=== PATIENT | male | born 1990 | race Caucasian/White ===

== ENCOUNTER 2019-03-25 18:44 | Emergency (ER) | payer OTHER ==
[2019-03-25] MEDS ORDERED: ACETAMINOPHEN 1000 MG/100 ML VIAL (NON FORMULARY) IVPB ONE (18:52)
[2019-03-25] MEDS ORDERED: METOCLOPRAMIDE HCL INJECTION 10 MG/2 ML VIAL IVPB ONE (18:52)
[2019-03-25] MEDS ORDERED: SODIUM CHLORIDE 1,000 ML IV STA (18:52)
[2019-03-25 18:53] VITALS: TEMP 98.2; BMI 29.8
--- NOTE | 2019-03-25 18:53 | PDOC ---
Rapid Medical Evaluation Time Seen by Provider: 03/25/19 18:48 Medical Evaluation: 03/25/19 18:48 Pt presents to the ER for evaluation of headache. He was seen at [facility] and diagnosed with a sinus infection. He was placed on Amoxicillin and given nasal decongestant. He states he still has a headache. Exam: No gross neuro deficits. Orders: labs, CT, IV meds Pt to proceed to the ER for evaluation Discharge Disposition - Diagnosis Headache Qualifiers: Headache type: unspecified Headache chronicity pattern: acute headache Intractability: not intractable Qualified Code(s): R51 - Headache - Referrals - Patient Instructions - Post Discharge Activity
[2019-03-25] MEDS ORDERED: ACETAMINOPHEN INJECTION 100 ML IVPB ONE (20:56)
[2019-03-25] MEDS ORDERED: METOCLOPRAMIDE HCL INJECTION 10 MG/2 ML VIAL ONE (20:56)
--- NOTE | 2019-03-25 21:07 | PDOC ---
History of Present Illness - General Chief Complaint: Headache Stated Complaint: HEADACHE Time Seen by Provider: 03/25/19 18:48 History Source: Patient Exam Limitations: No Limitations - History of Present Illness Initial Comments: 03/25/19 20:56 Ray Hamilton is an otherwise healthy 28M recently seen at [facility] and diagnosed with sinusitis presenting with SOSA. Patient reports that he has had a R-sided SOSA for the last 2 weeks, described as constant stabbing 8-9/10 pain that is only relieved by 600mg ibuprofen but returns after 1 hour. Has episodes of blurry vision when the pain is too strong. Also complaining of right facial pain from forehead to jaw. Denies photophobia, nausea, vomiting, dizziness, weakness. No prior history of migraines or SOSA prior to 2 weeks ago, denies trauma to the head. Tolerating PO well. Denies fever/chills, chest pain, SOB. Diagnosed with sinusitis at [facility] pt on daily amoxicillin without improvement, denies any allergies, congestion, URI sx. NKDA No other PMH Works in construction Past History - Past Medical History Allergies/Adverse Reactions: Allergies Allergy/AdvReac Type Severity Reaction Status Date / Time No Known Allergies Allergy Verified 03/25/19 18:53 Home Medications: Ambulatory Orders NK [No Known Home Medication] 03/25/19 COPD: No GI Disorders: No Hypercholesterolemia: No - Surgical History Cholecystectomy: No - Immunization History Immunization Up to Date: No - Psycho Social/Smoking Cessation Hx Smoking History: Current every day smoker Have you smoked in the past 12 months: Yes Number of Cigarettes Smoked Daily: 2 Information on smoking cessation initiated: No Hx Alcohol Use: No Drug/Substance Use Hx: No Review of Systems - Review of Systems Able to Perform ROS?: Yes Constitutional: No: Chills, Fever HEENTM: Yes: Blurred Vision. No: Ear Pain, Hearing Loss, Throat Pain, Dental Problems Respiratory: No: Cough, Shortness of Breath, Productive cough Cardiac (ROS): No: Chest Pain, Lightheadedness, Palpitations, Syncope ABD/GI: No: Constipated, Diarrhea, Nausea, Vomiting : No: Symptoms Reported Musculoskeletal: No: Neck Pain Integumentary: No: Symptoms Reported Neurological: Yes: Headache. No: Numbness, Paresthesia, Weakness, Unsteady Gait Endocrine: No: Symptoms Reported Hematologic/Lymphatic: No: Symptoms Reported *Physical Exam - Vital Signs Last Vital Signs Temp Pulse Resp BP Pulse Ox 98.2 F 70 18 115/81 97 03/25/19 18:50 03/25/19 18:50 03/25/19 18:50 03/25/19 18:50 03/25/19 18:50 - Physical Exam General Appearance: Yes: Nourished, Appropriately Dressed. No: Apparent Distress HEENT: positive: EOMI, PARTH, Normal Voice, Symmetrical, Pharynx Normal, Hearing Grossly Normal, TM Erythema (R side), Other (R mastoid tenderness). negative: Scleral Icterus (R), Scleral Icterus (L), Pharyngeal Erythema, Tonsillar Exudate , Tonsillar Erythema Neck: positive: Trachea midline, Normal Thyroid, Supple. negative: Tender, Lymphadenopathy (R), Lymphadenopathy (L) Respiratory/Chest: positive: Normal Breath Sounds. negative: Chest Tender, Respiratory Distress, Accessory Muscle Use, Labored Respiration, Crackles, Rales , Rhonchi, Stridor Cardiovascular: positive: Regular Rhythm, Regular Rate. negative: Murmur Gastrointestinal/Abdominal: positive: Normal Bowel Sounds, Flat, Soft. negative : Tender, Organomegaly, Pulsatile Mass Musculoskeletal: positive: Normal Inspection. negative: CVA Tenderness Extremity: positive: Normal Capillary Refill, Normal Inspection, Normal Range of Motion, Pelvis Stable. negative: Tender Integumentary: positive: Normal Color, Dry, Warm. negative: Diaphoresis Neurologic: positive: product safety tester II-XII NML intact, Fully Oriented, Alert, Normal Mood/ Affect, Normal Response, Motor Strength 5/ ED Treatment Course - LABORATORY CBC & Chemistry Diagram: 03/25/19 21:05 03/25/19 21:05 Medical Decision Making - Medical Decision Making 03/25/19 21:45 Patient is otherwise healthy, presents with R-sided SOSA for 2 weeks. SOSA is consistent with migraine, SAH unlikely given clinical presentation. Also having facial pain with R TM erythema and mastoid tenderness without fever or notable neurological deficits concerning for development of mastoiditis despite amoxicillin use, no sick contacts or URI sx. - CBC/CMP for evaluation of electrolyte vs. infectious causes of SOSA - CT head for characterization of SOSA as well as r/o mastoid infection - IV NS, Reglan, Benadyl for SOSA control 03/25/19 22:36 CBC WNL CMP WNL Pending CT head at this time. If no findings, stable for d/c home with PMD follow-up and Reglan outpatient. Signed out to night team Dr. Tyler. Discharge - Discharge Information Problems reviewed: Yes Clinical Impression/Diagnosis: Headache Qualifiers: Headache type: unspecified Headache chronicity pattern: acute headache Intractability: not intractable Qualified Code(s): R51 - Headache Condition: Worsened - Follow up/Referral Referrals: [facility] [place] [facility] at [place] [Provider Group] - Patient Discharge Instructions Patient Printed Discharge Instructions: DI for Migraine Additional Instructions: Today you were evaluated for headache. Your labs show no infection or abnormalities. Your CT scan shows: Please continue to take your amoxicillin as prescribed. Please follow-up with your primary doctor; if you do not have one, please see our referral. If you experience worsening headache, nausea, vomiting, become unable to walk, or have fever, please return to the emergency room. - Post Discharge Activity
--- NOTE | 2019-03-25 21:21 | PDOC ---
Documentation entered by Perri Cordova SCRIBE, acting as scribe for Priya Thomas DO. Priya Thomas DO: This documentation has been prepared by the Tasha muñoz Nirvannie, SCRIBE, under my direction and personally reviewed by me in its entirety. I confirm that the documentation accurately reflects all work, treatment, procedures, and medical decision making performed by me. Attending Attestation - Resident Resident Name: NoblevargheseLester - ED Attending Attestation I have performed the following: I have examined & evaluated the patient, The case was reviewed & discussed with the resident, I agree w/resident's findings & plan, Exceptions are as noted - HPI HPI: 03/25/19 21:25 The patient is a 28 year old male, with no significant past medical history, who presents to the emergency department with 2 weeks of a constant, right-sided , 8-9/10 headache with associated intermittent blurred vision and right facial pain As per patient,[facility] and was found to have sinusitis. Patient notes taking Amoxicillin and Ibuprofen 600mg, with only minimal relief prompting his arrival to the ED. He denies any changes in strength or sensation. He denies any recent fevers, chills, or dizziness. He denies any recent nausea, vomiting, diarrhea or constipation. He denies any recent chest pain or shortness of breath. He denies any recent dysuria, frequency, urgency or hematuria. Allergies: NKDA - Physicial Exam PE: 03/25/19 21:35 Constitutional: Awake, alert, oriented. No acute distress. Head: +Right mastoid tenderness. +Right maxillary tenderness. Normocephalic. Eyes: PERRL. EOMI. Conjunctivae are not pale. ENT: +Right ear: Erythema without effusion or buldging. Left ear: No buldging or erythema. Mucous membranes are moist and intact. Posterior pharynx without exudates or erythema. Uvula midline. Neck: Supple. Full ROM. No lymphadenopathy. Cardiovascular: Regular rate. Regular rhythm. S1, S2 regular. Distal pulses are 2+ and symmetric. Pulmonary/Chest: No evidence of respiratory distress. Clear to auscultation bilaterally No wheezing, rales or rhonchi. Abdominal: Soft and non-distended. There is no tenderness. No rebound, guarding or rigidity. No organomegaly. No palpable masses. Good bowel sounds. Back: No CVA tenderness. Musculoskeletal: No edema. No cyanosis. No clubbing. Full range of motion in all extremities. No calf tenderness. Radial/pedal pulses are intact and 2+ bilaterally Skin: Skin is warm and dry. No petechiae. No purpura. Neurological: Alert and oriented to person, place, and time. Cranial nerves II -XII are grossly intact. Normal speech. Strength is grossly symmetric. No sensory deficits. Psychiatric: Good eye contact. Normal interaction, affect and behavior. - Medical Decision Making 03/25/19 21:19 a/p: 28yo male with recent dx of sinusitis from [facility] on Amox with persistent R headache, R mastoid ttp, pressure in R maxillary sinus -pt states eating and drinking normally and taking amox -pt denies f/c -no neck pain -no paresthesias -R sided fowler -suspect sinusitis and poss mastoiditis -will send for head ct given pt is on abx with persistent symptoms -will medicate for fowler -will monitor and reassess 03/25/19 21:57 wbc 10 03/25/19 22:03 fowler improving with meds 03/25/19 23:59 fowler resolved pt feeling better head ct neg stable for dc to home
[2019-03-25 21:30] LABS: EOS % 2.4 % (0-4.5); HEMATOCRIT 44.9 % (35.4-49); HEMOGLOBIN 15.1 GM/dL (11.7-16.9); MCH 31.2 pg (25.7-33.7); MCHC 33.6 g/dl (32.0-35.9); MEAN PLT VOLUME 8.3 fl (7.5-11.1); MONO % 6.8 % (3.8-10.2); NEUT % 70.8 % (42.8-82.8); PLATELET COUNT 246 K/MM3 (134-434); RBC 4.83 M/mm3 (4.00-5.60); RDW 13.8 % (11.9-15.9); WHITE BLOOD COUNT 10.7 K/mm3 (4.0-10.0)
[2019-03-25 21:57] LABS: ALBUMIN 4.2 g/dl (3.4-5.0); BILIRUBIN,TOTAL 0.4 mg/dL (0.2-1); BLOOD UREA NITROGEN 13.6 mg/dL (7-18); CALCIUM 9.4 mg/dL (8.5-10.1); CREATININE 0.9 mg/dL (0.55-1.3); POTASSIUM 3.9 mmol/L (3.5-5.1); TOT PROT 7.2 g/dl (6.4-8.2)
--- NOTE | 2019-03-26 00:03 | PDOC ---
*Physical Exam - Vital Signs Last Vital Signs Temp Pulse Resp BP Pulse Ox 98.2 F 70 18 115/81 97 03/25/19 18:50 03/25/19 18:50 03/25/19 18:50 03/25/19 18:50 03/25/19 18:50 ED Treatment Course - LABORATORY CBC & Chemistry Diagram: 03/25/19 21:05 03/25/19 21:05 - ADDITIONAL ORDERS Additional order review: Laboratory Results 03/25/19 21:05 Sodium 140 Potassium 3.9 Chloride 104 Carbon Dioxide 32 Anion Gap 4 L BUN 13.6 Creatinine 0.9 Est GFR (CKD-EPI)AfAm 135.19 Est GFR (CKD-EPI)NonAf 116.64 Random Glucose 84 Calcium 9.4 Total Bilirubin 0.4 AST 19 ALT 26 Alkaline Phosphatase 69 Total Protein 7.2 Albumin 4.2 03/25/19 21:05 RBC 4.83 MCV 93.0 MCHC 33.6 RDW 13.8 MPV 8.3 Neutrophils % 70.8 Lymphocytes % 19.0 Monocytes % 6.8 Eosinophils % 2.4 Basophils % 1.0 - Medications Given in the ED: ED Medications Discontinued Medications Generic Name Dose Route Start Last Admin Trade Name Freq PRN Reason Stop Dose Admin Acetaminophen 1,000 mg 03/25/19 18:52 03/25/19 21:12 Ofirmev Injection - IVPB 03/25/19 18:53 1,000 mg ONCE ONE Administration Diphenhydramine HCl 12.5 mg 03/25/19 18:52 03/25/19 21:12 Benadryl Injection - IVPB 03/25/19 18:53 12.5 mg ONCE ONE Administration Sodium Chloride 1,000 mls @ 1,000 mls/hr 03/25/19 18:52 03/25/19 21:12 Normal Saline - IV 03/25/19 19:51 1,000 mls/hr ASDIR STA Administration Metoclopramide HCl 10 mg 03/25/19 18:52 03/25/19 21:13 Reglan Injection - IVPB 03/25/19 18:53 10 mg ONCE ONE Administration Medical Decision Making - Medical Decision Making 03/26/19 00:01 28 y/o M with no pmh, presents with R-sided SOSA for 2 weeks. SOSA is consistent with migraine, SAH unlikely given clinical presentation. Also having facial pain with R TM erythema and mastoid tenderness without fever or notable neurological deficits concerning for development of mastoiditis despite amoxicillin use, no sick contacts or URI sx. CT head with no acute pathology patient reassessed and symptoms have completely resolved. discussed with patient results; he is comfortable with plan to DC home and followup with PCP which has been made a referral for tylenol and motrin for pain control, continue amox Discharge - Discharge Information Problems reviewed: Yes Clinical Impression/Diagnosis: Headache Qualifiers: Headache type: unspecified Headache chronicity pattern: acute headache Intractability: not intractable Qualified Code(s): R51 - Headache Condition: Improved Disposition: HOME - Follow up/Referral Referrals: [facility] [place] Internal Med at [place] [Provider Group] - Patient Discharge Instructions Patient Printed Discharge Instructions: DI for Migraine Additional Instructions: Today you were evaluated for headache. Your labs show no infection or abnormalities. Your CT scan has no evidence of acute pathology, stroke, or infection of your skull Please continue to take your amoxicillin as prescribed. Please follow-up with your primary doctor; if you do not have one, please see our referral. If you experience worsening headache, nausea, vomiting, become unable to walk, or have fever, please return to the emergency room. You may take tylenol 650mg every 6-8 hours and 600mg every 6-8 hours for pain control. We recommend staggering medications for improved pain control, for example, motrin at 9am, tylenol at noon, motrin at 3pm, tylenol at 6pm, etc - Post Discharge Activity
[2019-03-26 00:09] VITALS: BP 113/76; PULSE 80
== END 2019-03-26 00:10 | disposition home or self-care (01) ==
LOC: JER 18:44
PROC: 3E033NZ Introduction of Analgesics, Hypnotics, Sedatives into Peripheral Vein, Percutaneous Approach (ICD-10-PCS; principal; 2019-03-25)
PROC: 3E033GC Introduction of Other Therapeutic Substance into Peripheral Vein, Percutaneous Approach (ICD-10-PCS; 2019-03-25)
DX: R51 Headache (principal)
CPT/HCPCS: 36415; 70450-TC; 80053; 85025; 99282-25; J0131; J7030

== ENCOUNTER 2020-12-07 23:46 | Emergency (ER) | payer OTHER ==
[2020-12-08 00:01] VITALS: BMI 29.6
[2020-12-08] MEDS ORDERED: METOCLOPRAMIDE HCL INJECTION 10 MG/2 ML VIAL IVPUSH ONE (00:33)
[2020-12-08] MEDS ORDERED: SODIUM CHLORIDE 1,000 ML IV STA (00:33)
[2020-12-08] MEDS ORDERED: ACETAMINOPHEN 1000 MG/100 ML VIAL (NON FORMULARY) IVPB ONE (00:34)
[2020-12-08] MEDS ORDERED: ACETAMINOPHEN INJECTION 100 ML IVPB ONE (00:40)
[2020-12-08] MEDS ORDERED: METOCLOPRAMIDE HCL INJECTION 10 MG/2 ML VIAL ONE (00:40)
[2020-12-08 02:17] VITALS: BP 119/76; PULSE 55; TEMP 97.8
== END 2020-12-08 02:19 | disposition home or self-care (01) ==
LOC: JER 23:46
PROC: 3E0333Z Introduction of Anti-inflammatory into Peripheral Vein, Percutaneous Approach (ICD-10-PCS; principal; 2020-12-07)
PROC: 3E033GC Introduction of Other Therapeutic Substance into Peripheral Vein, Percutaneous Approach (ICD-10-PCS; 2020-12-07)
PROC: 3E033GC Introduction of Other Therapeutic Substance into Peripheral Vein, Percutaneous Approach (ICD-10-PCS; 2020-12-07)
PROC: 3E0337Z Introduction of Electrolytic and Water Balance Substance into Peripheral Vein, Percutaneous Approach (ICD-10-PCS; 2020-12-07)
DX: R51.9 Headache, unspecified (principal); J02.9 Acute pharyngitis, unspecified; R05 Cough; Z11.52 Encounter for screening for COVID-19
CPT/HCPCS: 87804; 99284-25; C9803; J0131; U0003; U0005